=== PATIENT | male | born 1935 | race Caucasian/White ===

== ENCOUNTER 2018-08-09 17:09 | Inpatient (IN) | payer MEDICARE, BC ==
[~2018-08-09] VITALS: Ht 177.8 cm; Wt 78.0 kg
[~2018-08-09 17:09] MED LIST: AMLO5TAB4; ATOR40TA21
[2018-08-09 17:15] VITALS: Ht 177.8 cm; Wt 78.0 kg
--- NOTE | 2018-08-09 17:37 | ERD ---
ER Documentation Chief Complaint Chief Complaint fever with body aches/rick x 2 days--sent by pmd HPI The patient is a 83-year-old male, presenting to the ER because of headache and neck discomfort for the last 3 days, sore throat for the last 10 days. He was seen by his physician who sent him to the emergency department. He also c omplains of subjective fever for the last 3 days, denies nasal congestion, nasal discharge, cough, neck pain, chest pain, dyspnea, abdominal pain, dysuria, diarrhea. He does not smoke nor drink Past medical history: Hypertension, dyslipidemia, neuropathy, diabetes mellitus, history of prostate cancer Past surgical history: None ROS All systems reviewed and are negative except as per history of present illness. Medications Home Meds Reported Medications Atorvastatin (Lipitor) 40 Mg Tablet 05/08/10 Amlodipine Besylate* (Norvasc*) 5 Mg Tablet 05/08/10 Allergies Allergies: Coded Allergies: procaine (Verified Adverse Reaction, Severe, LEUKEMIA, 05/08/10) PMhx/Soc History of Surgery: Yes (SINUS SX.,TONSILLECTOMY) Anesthesia Reaction: Yes (HARD TO AROUSE) Hx Neurological Disorder: No Hx Respiratory Disorders: No Hx Cardiac Disorders: No Hx Psychiatric Problems: No Hx Miscellaneous Medical Probl: No Hx Alcohol Use: Yes (OCCASIONAL) Hx Substance Use: No Hx Tobacco Use: Yes (67 YEARS AGO) Physical Exam Vitals Vital Signs Date Temp Pulse Resp B/P (MAP) Pulse Ox O2 O2 Flow FiO2 Time Delivery Rate 08/09/18 98.2 71 16 129/64 95 Nasal 2.0 20:11 (85) Cannula 08/09/18 Nasal 2 18:10 Cannula 08/09/18 2.0 18:10 08/09/18 100.3 85 18 128/68 91 17:15 (88) Physical Exam Const: No acute distress. Head: Atraumatic. Eyes: Normal Conjunctiva. ENT: Normal External Ears, Nose and Mouth. Neck: Full range of motion. No meningismus. Resp: Clear to auscultation bilaterally. Cardio: Regular rate and rhythm. Abd: Soft, non distended, normal bowel sounds, non tender. Skin: No petechiae or rashes. Back: No midline or flank tenderness. Ext: No cyanosis, or edema. Neur: Awake and alert. No focal deficit Psych: Normal Mood and Affect. Result Diagram: 08/09/18 1802 08/09/18 180 Results 24 hrs Laboratory Tests Test 08/09/18 17:48 08/09/18 18:02 08/09/18 18:03 08/09/18 18:04 Blood Gas Blood arterial Specimen Source Arterial Blood 08/09/2018 6:04: Date Drawn 06 PM Arterial Blood 7.454 pH (Temp corrected ) Arterial Blood 33.9 mmhg pCO2 (Temp correct) Arterial Blood 61.6 mmHG pO2 (Temp corrected ) Arterial Blood 23.2 mmol/L HCO3 Arterial Blood -0.1 mmol/L Base Excess Arterial Blood 91.9 mmHG Oxygen Saturati on Eris Test ACCEPTAB Arterial Blood Right Radial Gas Puncture Site Arterial 0.7 % Blood Carboxyhe moglobin Arterial Blood 0.3 % Methemoglobin Blood Gas A-a 47.5 mmHg O2 Differential Oxyhemoglobin 91.0 % Percent Blood Gas 37.0 C Temperature Blood Gas ROOM AIR Modality FiO2 21.0 % Blood Gas MDA Notified Whom Blood Gas 08/09/2018 6:06: Notified Time 33 PM White Blood 10.3 10^3/ul Count Red Blood Count 4.03 10^6/ul Hemoglobin 12.7 g/dl Hematocrit 38.8 % Mean 96.3 fl Corpuscular Volume Mean 31.5 pg Corpuscular Hemoglobin Mean 32.7 g/dl Corpuscular Hemoglobin Conc ent Red Cell 13.4 % Distribution Width Platelet Count 235 10^3/UL Mean Platelet 10.7 fl Volume Immature 0.700 % Granulocytes % Neutrophils % 78.9 % Lymphocytes % 7.3 % Monocytes % 10.6 % Eosinophils % 2.0 % Basophils % 0.5 % Nucleated Red 0.0 /100WBC Blood Cells % Immature 0.070 10^3/ul Granulocytes # Neutrophils # 8.1 10^3/ul Lymphocytes # 0.8 10^3/ul Monocytes # 1.1 10^3/ul Eosinophils # 0.2 10^3/ul Basophils # 0.1 10^3/ul Nucleated Red 0.0 10^3/ul Blood Cells # Prothrombin 13.1 Sec Time Prothrombin 1.0 Time Ratio INR 0.98 International Normalized Rati o Activated 26.9 Sec Partial Thrombo plast Time Sodium Level 141 mmol/L Potassium Level 3.4 mmol/L Chloride Level 104 mmol/L Carbon Dioxide 29 mmol/L Level Anion Gap 8 Blood Urea 19 mg/dl Nitrogen Creatinine 0.94 mg/dl Est Glomerular mL/min Filtrat Rate mL/min Glucose Level 136 mg/dl Calcium Level 8.6 mg/dl Total Bilirubin 1.1 mg/dl Direct 0.00 mg/dl Bilirubin Indirect 1.1 mg/dl Bilirubin Aspartate Amino 23 IU/L Transf (AST/SGO T) Alanine 24 IU/L Aminotransferas e (ALT/SGPT) Alkaline 131 IU/L Phosphatase Troponin I 0.012 ng/ml Total Protein 8.4 g/dl Albumin 3.7 g/dl Globulin 4.70 g/dl Albumin/Globuli 0.78 n Ratio Urine Color REBA Urine Clarity SLIGHTLY CLOUDY Urine pH 5.0 Urine Specific 1.027 [place] Urine Ketones NEGATIVE mg/dL Urine Nitrite NEGATIVE mg/dL Urine Bilirubin NEGATIVE mg/dL Urine 2+ mg/dL Urobilinogen Urine Leukocyte NEGATIVE Celeste/ul Esterase Urine 17 /HPF Microscopic RBC Urine 5 /HPF Microscopic WBC Urine Mucus MANY /HPF Urine 1+ mg/dL Hemoglobin Urine Glucose NEGATIVE mg/dL Urine Total 2+ mg/dl Protein POC Venous 1.1 mmol/L Lactate Current Medications Medications Dose Sig/Farhat Start Time Status Last (Trade) Ordered Route PRN Stop Time Admin Dose Reason Admin Sodium 1,000 ml @ Q1H ONCE 08/09/18 DC 08/09/18 Chloride 1,000 mls/hr IV 20:00 19:58 08/09/18 20:59 Ondansetron 4 mg ONCE STAT 08/09/18 DC 08/09/18 HCl (Zofran IV 19:53 19:59 Inj) 08/09/18 19:54 Morphine 2 mg ONCE STAT 08/09/18 DC 08/09/18 Sulfate IV 19:53 19:59 (morphine) 08/09/18 19:54 Potassium 40 meq ONCE STAT 08/09/18 DC 08/09/18 Chloride PO 19:53 19:59 (Klor-Con 20) 08/09/18 19:54 Procedures/MDM [place] [id number] Radiology Main Line: [phone] DIAGNOSTIC IMAGING REPORT Patient: MIRTHA ALBERTO : 1935 Age: 83 Sex: M MR #: [id number] DOS: 08/09/182055 Ordering MD: MAYUR MICHAEL MD Location: E/R Room/Bed: PROCEDURE: CTA Chest. CLINICAL INDICATION: Shortness of breath. TECHNIQUE: Direct spiral axial sections were obtained from the thoracic inlet to the upper abdomen with the use of 100 cc of Isovue 370 nonionic intravenous contrast material. Coronal and sagittal reformations were obtained. 3D volume rendered (or MIP) imaging was performed. DICOM images are available. The images were reviewed on a PACS workstation. CTDIvol: 91.55, 16.61 mGy. DLP: 588.85 mGy-cm. One or more of the following dose reduction techniques were used: - Automated exposure control. - Adjustment of the mA and/or kV according to patient size. - Use of iterative reconstruction technique. COMPARISON: None. FINDINGS: There is no pulmonary embolism. The main pulmonary artery is normal in caliber. There is no aortic aneurysm or dissection. There are mild aortic calcific ations. The heart is not enlarged. There is no pericardial effusion. There are mild atelectatic changes in the lungs. There is no pulmonary edema or consolidation. A 6 mm nodule is identified in the left upper lobe. No pleural effusion or pneumothorax is identified. No suspicious thyroid lesion is seen. There is no thoracic lymphadenopathy. The trachea and mainstem bronchi are patent. Limited evaluation of the upper abdomen is unremarkable. There is no suspicious osseous lesion. IMPRESSION: No pulmonary embolism. No pulmonary edema or consolidation. 6 mm nodule in the left upper lobe. A repeat CT scan should be obtained 6-12 months to reassess this finding (Ann-Marie 2017). RPTAT: HTAR .Cam Cuellar MD, MD Date Time Electronically viewed and signed by .Cam Cuellar MD, MD on 08/09/2018 22:07 .R/ CC: MAYUR MICHAEL MD [phone] [place] [id number] Radiology Main Line: [phone] DIAGNOSTIC IMAGING REPORT Patient: MIRTHA ALBERTO : 1935 Age: 83 Sex: M MR #: [id number] DOS: 08/09/181747 Ordering MD: MAYUR MICHAEL MD Location: E/R Room/Bed: PROCEDURE: CT HEAD NON CONTRAST CLINICAL INDICATION: Headache, neck pain, sepsis TECHNIQUE: Utilizing the multi-slice spiral CT scanner, multiple images were obtained through the brain without intravenous contrast. Automatic exposure control was utilized as dose lowering technique.DICOM images available One of more of the following dose reduction techniques were utilized: -automatic exposure control.-adjustment of the mA and/or kV according to patient size. -Use of iterative reconstruction technique. Radiation Dose: CTDI is 38.91 mGy. DLP is 634.23 mGy-cm. COMPARISON: None FINDINGS: Ventricular system appears unremarkable. Periventricular low density area suggestive of deep white matter ischemic changes. Proportionate overlying brain atrophy noted. No acute intracranial bleed, midline shift, acute extra-axial collection noted. Brain stem, posterior fossa appears unremarkable. The globe, retrobulbar area appears unremarkable. Bony calvarium and overlying soft tissues appear unremarkable. Visualized portions of the paranasal sinuses are clear IMPRESSION: NO ACUTE INTRACRANIAL BLEED NOTED. IF FURTHER WORKUP IS DESIRED, FOLLOW-UP MRI MAY BE HELPFUL. RPTAT: AAOO Physician Chloé Date Time Electronically viewed and signed by Physician Chloé on 08/09/2018 18:40 MB/ CC: MAYUR MICHAEL MD [id number] [place] [id number] Radiology Main Line: [phone] DIAGNOSTIC IMAGING REPORT Patient: MIRTHA ALBERTO : 1935 Age: 83 Sex: M MR #: [id number] DOS: 08/09/181747 Ordering MD: MAYUR MICHAEL MD Location: E/R Room/Bed: PROCEDURE: CHEST X-RAY CLINICAL INDICATION: Sepsis TECHNIQUE: Portable semi upright one-view COMPARISON: None FINDINGS: Heart size and pulmonary vascularity appears unremarkable. Elevated right hemidiaphragm with thickening of the minor fissure noted. No acute infiltrates, edema, pneumothorax noted. IMPRESSION: Small fluid collection in the minor fissure. This is a poor inspiratory chest RPTAT: AAOO Physician Chloé Date Time Electronically viewed and signed by Physician Chloé on 08/09/2018 18:40 MB/ CC: MAYUR MICHAEL MD [phone] [place] [address] Radiology Main Line: [phone] DIAGNOSTIC IMAGING REPORT Patient: MIRTHA ALBERTO : 1935 Age: 83 Sex: M MR #: [id number] DOS: 08/09/18 1748 Ordering MD: MAUYR MICHAEL MD Location: E/R Room/Bed: PROCEDURE: CT sinuses without. CLINICAL INDICATION: Headache. TECHNIQUE: The study was performed utilizing a multi-slice, multidetector CT scanner utilizing Widdle protocol. Direct spiral 1 mm axial sections were obtained through the head without the use of intravenous contrast material. 1 or more of the following dose reduction techniques were utilized: Automated exposure control, adjustment of the mA and/or kV according to patient's size, iterative reconstruction technique. Coronal and sagittal reformations were obt ained. The images were reviewed on a PACS workstation. DICOM images are available. RADIATION DOSE: CTDIvol: 23.76 mGy mGy DLP: 399.64 mGy.cm mGy-cm COMPARISON: No prior studies are available for comparison. FINDINGS: There are postoperative left-side medial antrectomy or middle turbinectomy. The left maxillary sinus is normally aerated. The right maxillary sinus is normally aerated. The right ostiomeatal unit is patent. There is mild leftward nasal septal deviation. There is no significant hypertrophy of the inferior turbinates. The ethmoid air cells and frontal sinuses are normally aerated. The frontoethmoidal recesses are patent. The sphenoid sinuses are normally aerated. The sphenoethmoidal recesses are patent. Limited visualization of the intracranial contents is unremarkable. The orbits, facial bones and soft tissues are normal in appearance. IMPRESSION: 1. Postoperative change left-sided medial antrectomy with some total middle turbinectomy. The surgical antrum is patent. 2. Otherwise, normal CT of the paranasal sinuses. No significant inflammatory changes. 3. Anatomy as discussed above. RPTAT: HGAS .Fadi Banuelos MD, Date Time Electronically viewed and signed by .Fadi Banuelos MD, on 08/09/2018 18:51 .S/ CC: MAYUR MICHAEL MD [id number] MEDICAL MAKING DECISION: The patient is a 83-year-old male, presenting with acute cephalgia of unclear etiology, had acute hypoxemia of unclear etiology, acute hypokalemia, acute hematuria, left lung nodule. He was treated with 1 L normal saline for clinical dehydration, Zofran 4 mg IV for nausea and morphine 2 mg IV for pain, potassium chloride 40 mg p.o. for acute hypokalemia with good response. He seems better and is able to tolerate p.o. he responded well to supplemental oxygen 2 L nasal cannula The differential diagnoses for acute headache considered include but are not limited to subarachnoid hemorrhage, occult trauma, CVA, meningitis, encephali tis, hypertension, tension, migraine, cluster, narcotic withdrawal, cervical spine disease, viral/bacterial meningitis. The differential diagnoses for acute hypoxemia considered include but are not l imited to asthma, COPD, pneumonia, pulmonary embolus, pleural effusion, congestive heart failure. Departure Diagnosis: Primary Impression: Hypoxemia Additional Impressions: Cephalgia Hypokalemia Hematuria Lung nodule Anemia Condition: Stable Comments I discussed the findings with the patient. I discussed the patient with Dr Huggins at 8:55p , who was made aware of the lab, the treatment, the patient condition. The patient is admitted to [facility] Disclaimer: Inadvertent spelling and grammatical errors are likely due to EHR/dictation software use and do not reflect on the overall quality of patient care. Also, please note that the electronic time recorded on this note does not necessarily reflect the actual time of the patient encounter. MAYUR MICHAEL MD August 09, 2018 17:37
[2018-08-09] MEDS ORDERED: ONDANSETRON 4 MG INJ IV STA (19:53)
[2018-08-09] MEDS ORDERED: POTASSIUM CHLORIDE (SR) 20 MEQ TAB PO STA (19:53)
[2018-08-09] MEDS ORDERED: morphine 2 MG INJ IV STA (19:53)
[2018-08-09] MEDS ORDERED: SOD CHLORIDE 0.9% 1,000 ML IV ONE (20:00)
[2018-08-09] MEDS ORDERED: SOD CHLORIDE 0.9% 100 ML ONE (21:11)
[2018-08-09] MEDS ORDERED: IOHEXOL 100 ML ONE (21:11)
[2018-08-09 22:00] VITALS: BP 130/63; PULSE 79; RESP 18
[2018-08-09] MEDS ORDERED: ONDANSETRON 4 MG INJ IV PRN (22:30)
[2018-08-09] MEDS ORDERED: 1/2 NS + KCL 20 MEQ 1,000 ML IV SCH (22:30)
[2018-08-09] MEDS ORDERED: ACETAMINOPHEN 325 MG TAB PO PRN (22:30)
[2018-08-09] MEDS ORDERED: NACL 0.9% 3 ML SYG IV SCH (22:30)
[2018-08-09] MEDS ORDERED: POTASSIUM CHLORIDE 50 ML IVPB SCH (23:00)
[2018-08-09] MEDS: POTASSIUM CHLORIDE 50 ML IVPB SCH (23:03)
[2018-08-10] VITALS (12 sets, daily range): BP systolic 98–122; BP diastolic 55–59; PULSE 56–131; RESP 16–18
[2018-08-10] MEDS: CELECOXIB 200 MG CAP PO SCH ×3 (00:23→20:38)
[2018-08-10] MEDS ORDERED: PANTOPRAZOLE 40 MG INJ IV SCH (06:00)
[2018-08-10] MEDS: SOD CHLORIDE 0.9% 1,000 ML IV SCH (08:30)
--- NOTE | 2018-08-10 08:32 | HP ---
Date/Time of Note Date/Time of Note DATE: 08/10/18 TIME: 08:29 Assessment/Plan VTE Prophylaxis SCD applied (from Nsg): Yes Pharmacological prophylaxis: NA/contraindicated (until cause of sxs clarified) Pharm contraindication: other (until sxs clarified) Lines/Catheters IV Catheter Type (from Nrsg): Saline Lock Urinary Cath still in place: No Assessment/Plan Assessment/Plan H and P dictated Pt admitted with sore throat, diff swallowing, low grade temp with MRI of neck 1-2 d ago revealing "Longus Colli Tendonitis" rev with Dr. Cheney, Celebrex started and he will see today Speech rx requested, inflam markers ordered, diet advanced, Low k addressed. Result Diagram: 08/10/18 0558 08/09/18 1802 Results 24hrs Laboratory Tests Test 08/09/18 17:48 08/09/18 18:02 08/09/18 18:03 08/09/18 18:04 Blood Gas Blood arterial Specimen Source Arterial Blood 08/09/2018 6:04: Date Drawn 06 PM Arterial Blood 7.454 H pH (Temp corrected) Arterial Blood 33.9 L pCO2 (Temp correct) Arterial Blood 61.6 L pO2 (Temp corrected) Arterial Blood 23.2 HCO3 Arterial Blood -0.1 Base Excess Arterial Blood 91.9 L Oxygen Saturatio n Eris Test ACCEPTAB Arterial Blood Right Radial Gas Puncture Site Arterial 0.7 Blood Carboxyhem oglobin Arterial Blood 0.3 Methemoglobin Blood Gas A-a O2 47.5 H Differential Oxyhemoglobin 91.0 L Percent Blood Gas 37.0 Temperature Blood Gas ROOM AIR Modality FiO2 21.0 Blood Gas MDA Notified Whom Blood Gas 08/09/2018 6:06: Notified Time 33 PM White Blood 10.3 Count Red Blood Count 4.03 L Hemoglobin 12.7 L Hematocrit 38.8 L Mean Corpuscular 96.3 Volume Mean Corpuscular 31.5 Hemoglobin Mean Corpuscular 32.7 Hemoglobin Aide nt Red Cell 13.4 Distribution Width Platelet Count 235 Mean Platelet 10.7 H Volume Immature 0.700 H Granulocytes % Neutrophils % 78.9 H Lymphocytes % 7.3 L Monocytes % 10.6 Eosinophils % 2.0 Basophils % 0.5 Nucleated Red 0.0 Blood Cells % Immature 0.070 H Granulocytes # Neutrophils # 8.1 H Lymphocytes # 0.8 Monocytes # 1.1 H Eosinophils # 0.2 Basophils # 0.1 Nucleated Red 0.0 Blood Cells # Prothrombin Time 13.1 Prothrombin Time 1.0 Ratio INR 0.98 International Normalized Ratio Activated 26.9 Partial Thrombop last Time Sodium Level 141 Potassium Level 3.4 L Chloride Level 104 Carbon Dioxide 29 Level Anion Gap 8 Blood Urea 19 Nitrogen Creatinine 0.94 Est Glomerular Filtrat Rate mL/min Glucose Level 136 Calcium Level 8.6 Total Bilirubin 1.1 Direct Bilirubin 0.00 Indirect 1.1 Bilirubin Aspartate Amino 23 Transf (AST/SGOT ) Alanine 24 Aminotransferase (ALT/SGPT) Alkaline 131 H Phosphatase Troponin I 0.012 Total Protein 8.4 H Albumin 3.7 Globulin 4.70 H Albumin/Globulin 0.78 Ratio Urine Color REBA Urine Clarity SLIGHTLY CLOUDY A Urine pH 5.0 Urine Specific 1.027 [place] Urine Ketones NEGATIVE Urine Nitrite NEGATIVE Urine Bilirubin NEGATIVE Urine 2+ H Urobilinogen Urine Leukocyte NEGATIVE Esterase Urine 17 H Microscopic RBC Urine 5 Microscopic WBC Urine Mucus MANY A Urine Hemoglobin 1+ H Urine Glucose NEGATIVE Urine Total 2+ H Protein POC Venous 1.1 Lactate Test 08/09/18 21:34 08/10/18 00:14 08/10/18 05:58 Lactic Acid 1.3 1.0 Level White Blood 10.2 Count Red Blood Count 3.59 L Hemoglobin 11.3 L Hematocrit 35.0 L Mean Corpuscular 97.5 Volume Mean Corpuscular 31.5 Hemoglobin Mean Corpuscular 32.3 Hemoglobin Aide nt Red Cell 13.5 Distribution Width Platelet Count 208 Mean Platelet 11.0 H Volume Immature 0.800 H Granulocytes % Neutrophils % 80.4 H Lymphocytes % 6.7 L Monocytes % 9.7 Eosinophils % 2.0 Basophils % 0.4 Nucleated Red 0.0 Blood Cells % Immature 0.080 H Granulocytes # Neutrophils # 8.2 H Lymphocytes # 0.7 L Monocytes # 1.0 H Eosinophils # 0.2 Basophils # 0.0 Nucleated Red 0.0 Blood Cells # Phosphorus Level 3.1 Magnesium Level 1.8 HPI/ROS Admit Date/Time Admit Date/Time August 09, 2018 at 20:57 PMH/Family/Social Past Medical History Medications Current Medications Amlodipine Besylate (Norvasc) 5 mg DAILY PO ; Start 08/10/18 at 09:00 Atorvastatin Calcium (Lipitor) 40 mg DAILY PO ; Start 08/10/18 at 09:00 IV Flush (NS 3 ml) 3 ml PER PROTOCOL IV ; Start 08/09/18 at 22:30 Ondansetron HCl (Zofran Inj) 4 mg Q6H PRN IV NAUSEA/VOMITING; Start 08/09/18 at 22:30 Acetaminophen (Tylenol Tab) 650 mg Q6H PRN PO .PAIN 1-3 OR TEMP; Start 08/09/18 at 22:30 Celecoxib (Celebrex) 200 mg BID PO Last administered on 08/10/18at 00:23; Admin Dose 200 MG; Start 08/09/18 at 22:30 Potassium Chloride 50 ml @ 50 mls/hr ONCE IVPB Last administered on 08/09/18at 23:03; Admin Dose 50 MLS/HR; Start 08/09/18 at 23:00; Stop 08/11/18 at 23:59 Famotidine (Pepcid) 20 mg HS PO ; Start 08/10/18 at 21:00; Status UNV Pantoprazole (Protonix Tab) 40 mg DAILY@06 PO ; Start 08/10/18 at 09:00; Status UNV Sodium Chloride 1,000 ml @ 50 mls/hr Q20H IV ; Start 08/10/18 at 08:30; Status UNV Coded Allergies: procaine (Verified Adverse Reaction, Severe, LEUKEMIA, 05/08/10) Social History Smoking Status: Former smoker Exam/Review of Systems Vital Signs Vitals Vital Signs Date Temp Pulse Resp B/P (MAP) Pulse Ox O2 O2 Flow FiO2 Time Delivery Rate 08/10/18 97.6 61 18 103/59 98 Nasal 07:06 (74) Cannula 08/09/18 2.0 20:11 KARL RODRIGUES MD August 10, 2018 08:32
[2018-08-10] MEDS: AMLODIPINE 5 MG TAB PO SCH (09:00)
[2018-08-10] MEDS ORDERED: FAMOTIDINE 20 MG INJ IV SCH (09:00)
[2018-08-10] MEDS: ATORVASTATIN 40 MG TAB PO SCH (09:21)
[2018-08-10] MEDS: PANTOPRAZOLE (EC) 40 MG TAB PO SCH (09:25)
--- NOTE | 2018-08-10 09:47 | HP ---
DATE OF ADMISSION: 08/09/2018 IDENTIFYING DATA: The patient is an 83-year-old male, who admitted to the hospital with headache, so re throat and low-grade fever. HISTORICAL EVENTS: It was 2 to 3 days ago, the patient noted the onset difficulty swallowing and sen sed a "sore throat" Soon following the latter, he noted some aching and stiffness involving his neck as well as soreness involving the posterior scalp, and parietal scalp. He noted some difficulty jess ding and twisting his neck from [id number]. He feels pressure and tightness in the occiput and it seems also to spread to the temporal areas bilaterally. He had modest difficulty swallowing solids a nd less so liquids. He admitted to reduced appetite, but no nausea and vomiting. He denied cough, w heezing, shortness of breath and chest pain. Importantly he was evaluated by Dr. Cheney 3 to 4 week s ago and was empirically treated for a sinus condition with Cipro and Medrol Dosepak. More importan tly, he underwent an MRI scan of his neck and this revealed findings thought compatible with longus c olli tendinitis. This was revealed to me by Dr. Cheney last night. PAST MEDICAL HISTORY: Diabetes (?) as this patient is new to me as of several months ago, hypertensi on, bilateral hearing deficit, hyperlipidemia, neuropathy, history of prostate cancer, undergoing reg ular evaluation by Dr. Juan Barker. History of sinusitis and a prior smoker. SOCIAL HISTORY: The patient came here from [facility] in 1959 served in the [employer], , no chi ldren. Worked for [employer] and presently not working. MEDICATIONS: 1. Atorvastatin 40 mg per day. 2. Claritin 10 per day. 3. Amlodipine 10 mg per day. 4. Lyrica 200 mg b.i.d. ALLERGIES: NONE. PHYSICAL EXAMINATION: GENERAL: Toyei male, in no acute distress. VITAL SIGNS: Blood pressure 123/70, pulse 72, respirations were 18. He was afebrile. EYES: Extraocular muscles were full. NOSE, MOUTH, AND THROAT: Normal. NECK: Revealed some tenderness involving the posterior cervical area and reduced range of motion. T Ms were normal bilaterally. LUNGS: Clear. HEART: Rhythm regular, no murmur. ABDOMEN: Nontender. Liver and spleen not enlarged. EXTREMITIES: No edema. Calves are nontender. NEUROLOGIC: No lateralizing motor weakness. IMPRESSION AND PLAN: 1. Presenting symptoms of low grade fever, difficulty swallowing and sore throat with imaging eviden ce of longus colli tendinitis. We will begin empiric Celebrex 200 mg b.i.d. with GI protection. ENT to follow up as well as ID. Inflammatory markers and procalcitonin were ordered. 2. History of hypertension, blood pressure medications will be continued. 3. History of diabetes. Sugars will be observed. A1c ordered. For the moment, he will remain on c lear liquids. Speech therapy to evaluate as well. Dictated By: KARL RODRIGUES MD MR/NTS Conf#: [id number] DID#: [id number] CC: KARL RODRIGUES MD;*EndCC*
--- NOTE | 2018-08-10 16:17 | RADRPT ---
Vent Rate: 65 bpm RR Interval: 928 msec [place] Interval: 225 msec QRS Duration: 98 msec QT Interval: 437 msec QTC Interval: 454 msec P-R-T [place]: 60 - 38 - 50 degrees Sinus rhythm...normal P axis, V-rate 50- 99 Prolonged AZ interval...AZ >220, V-rate 50- 90 Electronically Signed By: Silvestre Garcia
[2018-08-10] MEDS: FAMOTIDINE 20 MG TAB PO SCH (20:38)
[2018-08-11] VITALS (11 sets, daily range): BP systolic 108–141; BP diastolic 60–67; PULSE 60–82; RESP 19–20
[2018-08-11] MEDS: POTASSIUM CHLORIDE 50 ML IVPB SCH ×3 (00:17→23:00)
[2018-08-11] MEDS: SOD CHLORIDE 0.9% 1,000 ML IV SCH (04:30)
[2018-08-11] MEDS: PANTOPRAZOLE (EC) 40 MG TAB PO SCH (06:24)
[2018-08-11] MEDS: ATORVASTATIN 40 MG TAB PO SCH (08:13)
[2018-08-11] MEDS: AMLODIPINE 5 MG TAB PO SCH (08:14)
[2018-08-11] MEDS: CELECOXIB 200 MG CAP PO SCH ×2 (08:15→20:44)
--- NOTE | 2018-08-11 08:18 | PN ---
Date/Time of Note Date/Time of Note DATE: 08/11/18 TIME: 08:13 Assessment/Plan VTE Prophylaxis Risk score (from Ns)>0 risk: 3 SCD applied (from Ns): Yes Pharmacological prophylaxis: NA/contraindicated (await mra) Pharm contraindication: low risk/ambulating Lines/Catheters IV Catheter Type (from Nrs): Saline Lock Urinary Cath still in place: No Assessment/Plan Assessment/Plan 1. BLANCA persist, ? cause await ID (?LP) and neuro eval, MRA brain ordered, CRP and Sed rate inc, ?? Temporal arteritis 2. Hypoxemia was not present yesterday with oxygen Sat>90 3. DM, AIC sl inc, will add Tradjenta 4. Mild anemia noted, will pursue Result Diagram: 08/11/18 0606 08/10/18 0849 Results 24hrs Laboratory Tests Test 08/10/18 08:49 08/11/18 06:06 Erythrocyte Sedimentation Rate 58 H Sodium Level 141 Potassium Level 3.8 Chloride Level 108 Carbon Dioxide Level 28 Anion Gap 5 Blood Urea Nitrogen 15 Creatinine 0.76 Est Glomerular Filtrat Rate mL/min Glucose Level 122 Calcium Level 7.6 L C-Reactive Protein 6.4 H Procalcitonin 0.09 White Blood Count 7.0 # Red Blood Count 3.57 L Hemoglobin 11.2 L Hematocrit 34.9 L Mean Corpuscular Volume 97.8 Mean Corpuscular Hemoglobin 31.4 Mean Corpuscular Hemoglobin Concent 32.1 Red Cell Distribution Width 13.3 Platelet Count 208 Mean Platelet Volume 11.2 H Immature Granulocytes % 0.700 H Neutrophils % 77.1 H Lymphocytes % 7.0 L Monocytes % 8.6 Eosinophils % 5.9 Basophils % 0.7 Nucleated Red Blood Cells % 0.0 Immature Granulocytes # 0.050 H Neutrophils # 5.4 Lymphocytes # 0.5 L Monocytes # 0.6 Eosinophils # 0.4 Basophils # 0.1 Nucleated Red Blood Cells # 0.0 Hemoglobin A1c 7.1 H Subjective 24 Hr Interval Summary Constitutional: other (fatigue) Cardiovascular: No chest pain, No edema, No lightheadedness Gastrointestinal: no complaints Genitourinary: no complaints Musculoskeletal: no complaints Neurologic: other (blanca persists, ?? pulsatile parietal and occipital) Exam/Review of Systems Exam Vitals Vital Signs Date Temp Pulse Resp B/P (MAP) Pulse Ox O2 O2 Flow FiO2 Time Delivery Rate 08/11/18 97.4 67 20 122/63 95 Nasal 07:46 (82) Cannula 08/11/18 3.0 05:43 Intake and Output 08/10/18 08/10/18 08/11/18 1515:00 23:00 07:00 IntakeIntake Total 450 ml BalanceBalance 450 ml Neck: No jvd Respiratory: clear to auscultation Cardiovascular: regular rate and rhythm Gastrointestinal: soft Neurological: No focal weakness Results Results 24hrs Laboratory Tests Test 08/10/18 08:49 08/11/18 06:06 Erythrocyte Sedimentation Rate 58 H Sodium Level 141 Potassium Level 3.8 Chloride Level 108 Carbon Dioxide Level 28 Anion Gap 5 Blood Urea Nitrogen 15 Creatinine 0.76 Est Glomerular Filtrat Rate mL/min Glucose Level 122 Calcium Level 7.6 L C-Reactive Protein 6.4 H Procalcitonin 0.09 White Blood Count 7.0 # Red Blood Count 3.57 L Hemoglobin 11.2 L Hematocrit 34.9 L Mean Corpuscular Volume 97.8 Mean Corpuscular Hemoglobin 31.4 Mean Corpuscular Hemoglobin Concent 32.1 Red Cell Distribution Width 13.3 Platelet Count 208 Mean Platelet Volume 11.2 H Immature Granulocytes % 0.700 H Neutrophils % 77.1 H Lymphocytes % 7.0 L Monocytes % 8.6 Eosinophils % 5.9 Basophils % 0.7 Nucleated Red Blood Cells % 0.0 Immature Granulocytes # 0.050 H Neutrophils # 5.4 Lymphocytes # 0.5 L Monocytes # 0.6 Eosinophils # 0.4 Basophils # 0.1 Nucleated Red Blood Cells # 0.0 Hemoglobin A1c 7.1 H Medications Medication Current Medications Amlodipine Besylate (Norvasc) 5 mg DAILY PO ; Start 08/10/18 at 09:00 Atorvastatin Calcium (Lipitor) 40 mg DAILY PO Last administered on 08/10/18at 09:21; Admin Dose 40 MG; Start 08/10/18 at 09:00 IV Flush (NS 3 ml) 3 ml PER PROTOCOL IV ; Start 08/09/18 at 22:30 Ondansetron HCl (Zofran Inj) 4 mg Q6H PRN IV NAUSEA/VOMITING; Start 08/09/18 at 22:30 Acetaminophen (Tylenol Tab) 650 mg Q6H PRN PO .PAIN 1-3 OR TEMP Last administered on 08/10/18at 14:57; Admin Dose 650 MG; Start 08/09/18 at 22:30 Celecoxib (Celebrex) 200 mg BID PO Last administered on 08/10/18 20:38; Admin Dose 200 MG; Start 08/09/18 at 22:30 Potassium Chloride 50 ml @ 50 mls/hr ONCE IVPB Last administered on 08/11/18at 00:17; Admin Dose 50 MLS/HR; Start 08/09/18 at 23:00; Stop 08/11/18 at 23:59 Famotidine (Pepcid) 20 mg HS PO Last administered on 08/10/18 20:38; Admin Dose 20 MG; Start 08/10/18 at 21:00 Pantoprazole (Protonix Tab) 40 mg DAILY@06 PO Last administered on 08/11/18at 06:24; Admin Dose 40 MG; Start 08/10/18 at 09:00 Sodium Chloride 1,000 ml @ 50 mls/hr Q20H IV Last administered on 08/11/18at 04:30; Admin Dose 50 MLS/HR; Start 08/10/18 at 08:30 KARL RODRIGUES MD August 11, 2018 08:18
[2018-08-11] MEDS ORDERED: GLUCAGON 1 MG INJ IM PRN (08:30)
[2018-08-11] MEDS ORDERED: GLUCOSE GEL 15 GRAM TUBE BUCCAL PRN (08:30)
[2018-08-11] MEDS ORDERED: GLUCOSE GEL 15 GRAM TUBE PO PRN ×2 (08:30)
[2018-08-11] MEDS ORDERED: DEXTROSE 50% 50 ML SYRINGE IV PRN ×2 (08:30)
--- NOTE | 2018-08-11 08:37 | CONS ---
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 no retropharyngeal abscess was appreciated and his procalcitonin is neg and his WBC is ok low grade fevers and pain with swallowing are hallmarks of longis new tendinitis antibiotics do not apply in this situation and no strong evidence exists for a current active infection continue with NSAID's and off antibiotics thank you for this interesting consult 2) DM 3) HTN 4) hx of prostate CA u/a shows some mild hematuria urine cx has <10k mixed GPC and is not significant plus the pt is asymptomatic no antibiotics needed for this Consultation Date/Type/Reason Admit Date/Time August 09, 2018 at 20:57 Date of Consultation: August 11, 2018 Type of Consult ID Date/Time of Note DATE: 08/11/18 TIME: 08:27 Hx of Present Illness pt gives a rambling hx but what I can piece together is that 3 years ago he started having difficulty swallowing he had pain with swallowing but did not have food getting stuck, this has pro gressively gotten worse He also states he gets nasal crusting alot and picks at his nose He noticed low grade fevers off an on for the last few months He also was having some BLANCA and pain with turning of his neck. No N, V, D his last BM was 7-10 days ago he believes no SOB, cough. no skin rashes, joint pains 3 weeks ago he got an IM shot and some unknown antibiotics that caused diarrhea and was told to stop them He noticed that 2 days after the shot his symptoms were gone His admission two days ago was due to some BLANCA and neck pain Past Medical History HTN, DM, prostate CA, XRT for prostate, hyperlipidemia, decreased hearing Home Meds Reported Medications Atorvastatin (Lipitor) 40 Mg Tablet 05/08/10 Amlodipine Besylate* (Norvasc*) 5 Mg Tablet 05/08/10 Medications Current Medications Amlodipine Besylate (Norvasc) 5 mg DAILY PO Last administered on 08/11/18at 08:14; Admin Dose 5 MG; Start 08/10/18 at 09:00 Atorvastatin Calcium (Lipitor) 40 mg DAILY PO Last administered on 08/11/18at 08:13; Admin Dose 40 MG; Start 08/10/18 at 09:00 IV Flush (NS 3 ml) 3 ml PER PROTOCOL IV ; Start 08/09/18 at 22:30 Ondansetron HCl (Zofran Inj) 4 mg Q6H PRN IV NAUSEA/VOMITING; Start 08/09/18 at 22:30 Acetaminophen (Tylenol Tab) 650 mg Q6H PRN PO .PAIN 1-3 OR TEMP Last administered on 08/10/18at 14:57; Admin Dose 650 MG; Start 08/09/18 at 22:30 Celecoxib (Celebrex) 200 mg BID PO Last administered on 08/11/18at 08:15; Admin Dose 200 MG; Start 08/09/18 at 22:30 Potassium Chloride 50 ml @ 50 mls/hr ONCE IVPB Last administered on 08/11/18at 00:17; Admin Dose 50 MLS/HR; Start 08/09/18 at 23:00; Stop 08/11/18 at 23:59 Famotidine (Pepcid) 20 mg HS PO Last administered on 08/10/18at 20:38; Admin D ose 20 MG; Start 08/10/18 at 21:00 Pantoprazole (Protonix Tab) 40 mg DAILY@06 PO Last administered on 08/11/18at 06:24; Admin Dose 40 MG; Start 08/10/18 at 09:00 Linagliptin (Tradjenta) 5 mg DAILY PO ; Start 08/11/18 at 09:00 Miscellaneous Information 1 ea NOTE XX ; Start 08/11/18 at 08:30 Glucose (Glutose) 15 gm Q15M PRN PO DECREASED GLUCOSE; Start 08/11/18 at 08:30 Glucose (Glutose) 22.5 gm Q15M PRN PO DECREASED GLUCOSE; Start 08/11/18 at 08:30 Dextrose (D50w Syringe) 25 ml Q15M PRN IV DECREASED GLUCOSE; Start 08/11/18 at 08:30 Dextrose (D50w Syringe) 50 ml Q15M PRN IV DECREASED GLUCOSE; Start 08/11/18 at 08:30 Glucagon (Glucagen) 1 mg Q15M PRN IM DECREASED GLUCOSE; Start 08/11/18 at 08:30 Glucose (Glutose) 15 gm Q15M PRN BUCCAL DECREASED GLUCOSE; Start 08/11/18 at 08:30 Allergies: Coded Allergies: procaine (Verified Adverse Reaction, Severe, LEUKEMIA, 05/08/10) Social History Smoking Status: Former smoker Exam/Review of Systems Exam Vitals Vital Signs Date Temp Pulse Resp B/P (MAP) Pulse Ox O2 O2 Flow FiO2 Time Delivery Rate 08/11/18 97.4 67 20 122/63 95 Nasal 07:46 (82) Cannula 08/11/18 3.0 05:43 Intake and Output 08/10/18 08/10/18 08/11/18 1515:00 23:00 07:00 IntakeIntake Total 450 ml BalanceBalance 450 ml Constitutional: alert, oriented Eyes: nl sclera ENMT: mucosa pink and moist Neck: supple Respiratory: clear to auscultation Cardiovascular: regular rate and rhythm Gastrointestinal: soft, non-tender Extremities: other (no edema) Neurological: other (non focal) Results Result Diagram: 08/11/18 0606 08/10/18 0849 Results 24hrs Laboratory Tests Test 08/10/18 08:49 08/11/18 06:06 Erythrocyte Sedimentation Rate 58 H Sodium Level 141 Potassium Level 3.8 Chloride Level 108 Carbon Dioxide Level 28 Anion Gap 5 Blood Urea Nitrogen 15 Creatinine 0.76 Est Glomerular Filtrat Rate mL/min Glucose Level 122 Calcium Level 7.6 L C-Reactive Protein 6.4 H Procalcitonin 0.09 White Blood Count 7.0 # Red Blood Count 3.57 L Hemoglobin 11.2 L Hematocrit 34.9 L Mean Corpuscular Volume 97.8 Mean Corpuscular Hemoglobin 31.4 Mean Corpuscular Hemoglobin Concent 32.1 Red Cell Distribution Width 13.3 Platelet Count 208 Mean Platelet Volume 11.2 H Immature Granulocytes % 0.700 H Neutrophils % 77.1 H Lymphocytes % 7.0 L Monocytes % 8.6 Eosinophils % 5.9 Basophils % 0.7 Nucleated Red Blood Cells % 0.0 Immature Granulocytes # 0.050 H Neutrophils # 5.4 Lymphocytes # 0.5 L Monocytes # 0.6 Eosinophils # 0.4 Basophils # 0.1 Nucleated Red Blood Cells # 0.0 Hemoglobin A1c 7.1 H Medications Medication Current Medications Amlodipine Besylate (Norvasc) 5 mg DAILY PO Last administered on 08/11/18at 08:14; Admin Dose 5 MG; Start 08/10/18 at 09:00 Atorvastatin Calcium (Lipitor) 40 mg DAILY PO Last administered on 08/11/18at 08:13; Admin Dose 40 MG; Start 08/10/18 at 09:00 IV Flush (NS 3 ml) 3 ml PER PROTOCOL IV ; Start 08/09/18 at 22:30 Ondansetron HCl (Zofran Inj) 4 mg Q6H PRN IV NAUSEA/VOMITING; Start 08/09/18 at 22:30 Acetaminophen (Tylenol Tab) 650 mg Q6H PRN PO .PAIN 1-3 OR TEMP Last administered on 08/10/18at 14:57; Admin Dose 650 MG; Start 08/09/18 at 22:30 Celecoxib (Celebrex) 200 mg BID PO Last administered on 08/11/18at 08:15; Admin Dose 200 MG; Start 08/09/18 at 22:30 Potassium Chloride 50 ml @ 50 mls/hr ONCE IVPB Last administered on 08/11/18at 00:17; Admin Dose 50 MLS/HR; Start 08/09/18 at 23:00; Stop 08/11/18 at 23:59 Famotidine (Pepcid) 20 mg HS PO Last administered on 08/10/18at 20:38; Admin Dose 20 MG; Start 08/10/18 at 21:00 Pantoprazole (Protonix Tab) 40 mg DAILY@06 PO Last administered on 08/11/18at 06:24; Admin Dose 40 MG; Start 08/10/18 at 09:00 Linagliptin (Tradjenta) 5 mg DAILY PO ; Start 08/11/18 at 09:00 Miscellaneous Information 1 ea NOTE XX ; Start 08/11/18 at 08:30 Glucose (Glutose) 15 gm Q15M PRN PO DECREASED GLUCOSE; Start 08/11/18 at 08:30 Glucose (Glutose) 22.5 gm Q15M PRN PO DECREASED GLUCOSE; Start 08/11/18 at 08:30 Dextrose (D50w Syringe) 25 ml Q15M PRN IV DECREASED GLUCOSE; Start 08/11/18 at 08:30 Dextrose (D50w Syringe) 50 ml Q15M PRN IV DECREASED GLUCOSE; Start 08/11/18 at 08:30 Glucagon (Glucagen) 1 mg Q15M PRN IM DECREASED GLUCOSE; Start 08/11/18 at 08:30 Glucose (Glutose) 15 gm Q15M PRN BUCCAL DECREASED GLUCOSE; Start 08/11/18 at 08:30 JOE WEI MD August 11, 2018 08:37
[2018-08-11] MEDS: LINAGLIPTIN 5 MG TABLET PO SCH (09:38)
--- NOTE | 2018-08-11 10:33 | RADRPT ---
Echocardiogram Report Patient Name: MIRTHA ALBERTOPatient ID: [id number] : 1935 (83y 3m)Study Date: 08/10/2018 11:55:45 AM Gender: MAccession #: [id number] Tech: Scout Rodriguez [facility] Location: [id number] Ref.Physician: KARL RODRIGUES Height(Cm): BSA: Weight(Kg): Quality: AdequateOrder Physician: KARL RODRIGUES Account #: Procedures: Echocardiographic Report: Transthoracic echocardiogram with complete 2D, M-Mode, and doppler examination. Indications: heart m and dysohagia. Measurements: 2D/M Mode Doppler Measurement Value Normal Range Measurement Value Normal Range LVIDd 2D 4.6 [ 4.2 - 5.8 ] cm AV Peak Bernabe 1.7 [ 100.0 - 170.0 ] cm/sec LVIDs 2D 2.7 [ 2.5 - 4.0 ] cm AV Peak PG 12.0 [ 2.0 - 9.0 ] mmHg LVPWd 2D 1.6 [ 0.6 - 1.0 ] cm LVOT Peak Bernabe 1.0 [ 70.0 - 110.0 ] cm/sec IVSd 2D 1.5 [ 0.6 - 1.0 ] cm LVOT Peak PG 4.0 [ 2.0 - 6.0 ] mmHg IVS/LVPW 2D 0.9 ratio MV E Peak Bernabe 0.8 [ 60.0 - 130.0 ] cm/sec AoR Diam 2D 2.9 [ 2.6 - 3.4 ] cm MV A Peak Bernabe 1.1 [ 100.0 - 120.0 ] cm/sec LA/Ao 2D 1 ratio MV E/A 0.7 [ 0.8 - 1.5 ] ratio LA Dimen 2D 3.9 [ 3.0 - 4.0 ] cm MV Decel Time 201 [ 104 - 258 ] msec Lat E` Bernabe 0.1 [ 10.0 - 15.0 ] cm/sec MV E/A 0.7 [ 0.8 - 1.5 ] ratio TR Peak Bernabe 2.4 [ 100.0 - 280.0 ] cm/sec TR Peak PG 23.0 mmHg RVSP 26.0 [ 10.0 - 36.0 ] mmHg RA Pressure 3.0 mmHg Findings: Left Ventricle: Normal left ventricular systolic function. Normal left ventricular cavity size. Moderate concentric left ventricular hypertrophy. Ejection fraction is visually estimated at 65 %. Tissue Doppler/Mitral Doppler indices are consistent with impaired relaxation (Stage I diastolic dysfunction). Right Ventricle: Normal right ventricular size. Normal right ventricular systolic function. Left Atrium: The left atrium is normal in size. Right Atrium: The right atrium is normal in size. Mitral Valve: Normal appearance of the mitral valve. Mild mitral annular calcification. Aortic Valve: No hemodynamically significant aortic stenosis by doppler. Aortic cusps appear mildly calcified. Trileaflet aortic valve. Mild aortic valve regurgitation. Tricuspid Valve: Normal appearance of the tricuspid valve. Normal right ventricular systolic pressure. Estimated peak PA systolic pressure 26 mmHg. There is trace tricuspid regurgitation. Pulmonic Valve: Normal pulmonic valve appearance. Pericardium: Normal pericardium with no significant pericardial effusion. Aorta: Normal aortic root. IVC: Normal size and normal respiratory collapse consistent with normal right atrial pressure. Conclusions: Normal left ventricular systolic function. Normal left ventricular cavity size. Moderate concentric left ventricular hypertrophy. Ejection fraction is visually estimated at 65 %. Tissue Doppler/Mitral Doppler indices are consistent with impaired relaxation (Stage I diastolic dysfunction). Normal right ventricular size. Normal right ventricular systolic function. Normal appearance of the mitral valve. Mild mitral annular calcification. No hemodynamically significant aortic stenosis by doppler. Aortic cusps appear mildly calcified. Trileaflet aortic valve. Mild aortic valve regurgitation. Normal appearance of the tricuspid valve. Normal right ventricular systolic pressure. Estimated peak PA systolic pressure 26 mmHg. There is trace tricuspid regurgitation. Normal pericardium with no significant pericardial effusion. Normal size and normal respiratory collapse consistent with normal right atrial pressure. No Vegetation, masses, or thrombi seen. Electronically Signed By: Corby Gifford 2018-08-11 10:32:32 PDT
--- NOTE | 2018-08-11 10:39 | HP ---
DATE OF ADMISSION: 08/09/2018 REFERRING PHYSICIAN: Karl Rodrigues MD REASON FOR CONSULTATION: Throat pain. HISTORY OF PRESENT ILLNESS: The patient is an 83-year-old male with a history of sore throats and l ow grade fevers. Patient has had an intermittent history of sore throat over the last several weeks. He was seen by me in the office about 2 months ago and received a shot of intramuscular Rocephin in addition to Kenalog, with significant resolution of his symptoms. Over the last several days, he rick s noted progressively worsening dysphagia and sore throat. He underwent an MRI of the neck last week , demonstrating the presence of longus colli tendinitis. No other abnormalities were identified. He was seen by Dr. Rodrigues yesterday with aching and stiffness of his neck as well as soreness of the po sterior scalp, and parietal scalp. He also had noted pressure and tightness in the occiput into the temporal areas. He had some moderate dysphagia to solids. He was admitted to the hospital for evalu ation of these symptoms. PAST MEDICAL HISTORY: 1. Questionable diabetes. 2. Hypertension. 3. Bilateral hearing loss. 4. Hyperlipidemia. 5. Previous history of prostate cancer. 6. Previous history of sinusitis and smoking. SOCIAL HISTORY: The patient lived in [facility]. He is without children. He is currently retir ed. MEDICATIONS ON ADMISSION: Included: 1. Atorvastatin. 2. Claritin. 3. Amlodipine. 4. Lyrica. ALLERGIES: NONE. Examination well-developed, well-nourished male in no acute distress. VITAL SIGNS: Blood pressure is 120/80, pulse is 80, respirations are 18. The patient is afebrile. GENERAL: No acute distress. HEAD: Atraumatic, normocephalic. No masses or lesions noted. Ear, nose and throat, the nasal endos copy is clear. Oropharynx and oral cavity is clear. NECK: Supple, full range of motion. Tympanic membranes clear bilaterally. There is no cervical lym phadenopathy. The cervical lymph nodes are unremarkable. ENDOCRINE: Thyroid appears nontender, without any evidence of masses. NEUROLOGIC: Cranial nerves II-XII are grossly intact. ASSESSMENT: The patient presents with a history of low-grade fevers with dysphagia and sore throats with radiographic evidence of longus colli tendinitis. After discussion with Dr. Rodrigues it was elect ed to proceed with this initiation of Celebrex and GI protection. Recommendation was to perform a be dside laryngoscopy to reevaluate the hypopharynx. Will consider infectious disease consultation with possible rheumatology and neurology consultations as well. In regards to the other medical problems including hypertension and diabetes. It is recommended that sugars be controlled and blood pressure control be maintained. I will perform a bedside laryngoscopy to identify any abnormal masses or les ions. Dictated By: DARRYL DUARTE MD AN/NTS Conf#: [id number] DID#: [id number] CC: KARL RODRIGUES MD;*EndCC*
--- NOTE | 2018-08-11 16:46 | CONS ---
Assessment/Plan Assessment/Plan Hospital Course 83 yo M with multiple comorbidities who presents for evaluation of headache, neck stiffness, and other sx... for which neurology is consulted. The pt is currently unable to characterize the details of his headache... The clinical picture is could be consistent with a secondary headache, in the context of systemic illness. Meningoencephalitis is unlikely. Temporal arteritis is unlikely. MRI brain is without acute intracranial pathology. P: Ok to defer additional neuroimaging for now Agree with celebrex (with protonix) for headache management Cont medical management per primary PT/OT/ST as necessary Will follow clinically, to recommend neurologic studies, as necessary Consultation Date/Type/Reason Admit Date/Time August 09, 2018 at 20:57 Type of Consult Neurology Reason for Consultation headache Requesting Provider: KARL RODRIGUES MD Date/Time of Note DATE: 08/11/18 TIME: 16:46 Hx of Present Illness 83 yo M with hx of HTN, prostate CA, and other comorbidities who presented to ED with complaints of headache, dysphagia, sore throat and neck stiffness. History was obtained from pt and chart review. The pt notes that he had a sinus infection ~ 1 month ago with headache, runny nose, and "pressure in his head." He states that he saw Dr Cheney who gave him a shot (IM Rocephin) and steroids after which he felt significantly better. He then states that about 2-3 days ago, he noticed a sore throat followed by a "stuffy nose" and a headache that "seemed to be all over" (while grabbing the back of his head). He was unable to characterize it but states that it was severe and limited his neck mobility. He then stated that he got some follow up neck imaging. He currently denies any headache, though states that it was relieved about 2 hours prior to this conversation. He denies any dizziness, weakness, lethargy, confusion, vision or speech changes, numbness or tingling, gait instability. He states that his swallowing is okay at this time. He also denies a hx of migraines. It is additionally elsewhere noted: HISTORICAL EVENTS: It was 2 to 3 days ago, the patient noted the onset difficulty swallowing and sensed a "sore throat" Soon following the latter, he noted some aching and stiffness involving his neck as well as soreness involving the posterior scalp, and parietal scalp. He noted some difficulty bending and twisting his neck from [id number]. He feels pressure and tightness in the occiput and it seems also to spread to the temporal areas bilaterally. He had modest difficulty swallowing solids and less so liquids. He admitted to reduced appetite, but no nausea and vomiting. He denied cough, wheezing, shortness of breath and chest pain. Importantly he was evaluated by Dr. Cheney 3 to 4 weeks ago and was empirically treated for a sinus condition with Cipro and Medrol Dosepak. More importantly, he underwent an MRI scan of his neck and this revealed findings thought compatible with longus colli tendinitis. This was revealed to me by Dr. Cheney last night. negative unless noted otherwise in HPI Exam/Review of Systems Exam Vitals Vital Signs Date Temp Pulse Resp B/P (MAP) Pulse Ox O2 O2 Flow FiO2 Time Delivery Rate 08/11/18 97.5 67 20 122/67 92 Room Air 15:06 (85) 08/11/18 3.0 05:43 Intake and Output 08/10/18 08/10/18 08/11/18 1414:59 22:59 06:59 IntakeIntake Total 450 ml BalanceBalance 450 ml Exam PE: Gen Appearance: No Apparent Distress HEENT: Normocephalic Cardiovascular: Regular rate Lungs: Clear bilaterally Abdomen: Soft Extremities: Dry NE: The patient was alert and oriented. Language was normal. Fund of knowledge was normal. Pupils were equal and reactive to light. There was no afferent pupillary defect. Visual reza were normal. Funduscopic examination was limited. Extra-ocular movements were full. Ptosis was absent. There was no nystagmus. Facial sensation was normal. Face was symmetric with normal strength. Hearing was intact. Palate movements were normal. Neck strength was normal. There was normal tongue bulk and speed of movement. Tone was normal. Muscle bulk was normal. I did not see fasciculations. Arms and legs were strong to confrontation. Vibration sensation was normal. Temperature and pinprick sensation was normal. Rapid alternating movements were normal. There was no dysmetria. There was no intention tremor. Gait was deferred due to bedrest. Arm and leg reflexes were 2+ and symmetric. Nair's sign was absent. Plantar responses were flexor. Results Result Diagram: 08/11/18 0606 08/10/18 0849 Results 24hrs Laboratory Tests Test 08/11/18 06:06 08/11/18 08:20 08/11/18 14:40 White Blood Count 7.0 # Red Blood Count 3.57 L Hemoglobin 11.2 L Hematocrit 34.9 L Mean Corpuscular Volume 97.8 Mean Corpuscular Hemoglobin 31.4 Mean Corpuscular Hemoglobin Concent 32.1 Red Cell Distribution Width 13.3 Platelet Count 208 Mean Platelet Volume 11.2 H Immature Granulocytes % 0.700 H Neutrophils % 77.1 H Lymphocytes % 7.0 L Monocytes % 8.6 Eosinophils % 5.9 Basophils % 0.7 Nucleated Red Blood Cells % 0.0 Immature Granulocytes # 0.050 H Neutrophils # 5.4 Lymphocytes # 0.5 L Monocytes # 0.6 Eosinophils # 0.4 Basophils # 0.1 Nucleated Red Blood Cells # 0.0 Hemoglobin A1c 7.1 H Urine Color YELLOW YELLOW Urine Clarity CLEAR CLEAR Urine pH 8.0 8.0 Urine Specific [place] 1.011 1.009 Urine Ketones TRACE A NEGATIVE Urine Nitrite NEGATIVE NEGATIVE Urine Bilirubin NEGATIVE NEGATIVE Urine Urobilinogen 1+ H 2+ H Urine Leukocyte Esterase NEGATIVE NEGATIVE Urine Microscopic RBC 8 H 7 H Urine Microscopic WBC 1 1 Urine Hemoglobin 1+ H 1+ H Urine Random Creatinine 45.26 Urine Protein/Creatinine Ratio 0.39 Urine Glucose NEGATIVE NEGATIVE Urine Total Protein NEGATIVE NEGATIVE Urine Bacteria FEW A Urine Mucus FEW A Medications Medication Current Medications Amlodipine Besylate (Norvasc) 5 mg DAILY PO Last administered on 08/11/18at 08:14; Admin Dose 5 MG; Start 08/10/18 at 09:00 Atorvastatin Calcium (Lipitor) 40 mg DAILY PO Last administered on 08/11/18at 08:13; Admin Dose 40 MG; Start 08/10/18 at 09:00 IV Flush (NS 3 ml) 3 ml PER PROTOCOL IV ; Start 08/09/18 at 22:30 Ondansetron HCl (Zofran Inj) 4 mg Q6H PRN IV NAUSEA/VOMITING; Start 08/09/18 at 22:30 Acetaminophen (Tylenol Tab) 650 mg Q6H PRN PO .PAIN 1-3 OR TEMP Last administered on 08/10/18at 14:57; Admin Dose 650 MG; Start 08/09/18 at 22:30 Celecoxib (Celebrex) 200 mg BID PO Last administered on 08/11/18at 08:15; Admin Dose 200 MG; Start 08/09/18 at 22:30 Potassium Chloride 50 ml @ 50 mls/hr ONCE IVPB Last administered on 08/11/18at 00:17; Admin Dose 50 MLS/HR; Start 08/09/18 at 23:00; Stop 08/11/18 at 23:59 Famotidine (Pepcid) 20 mg HS PO Last administered on 08/10/18at 20:38; Admin Dose 20 MG; Start 08/10/18 at 21:00 Pantoprazole (Protonix Tab) 40 mg DAILY@06 PO Last administered on 08/11/18at 06:24; Admin Dose 40 MG; Start 08/10/18 at 09:00 Linagliptin (Tradjenta) 5 mg DAILY PO Last administered on 08/11/18at 09:38; Admin Dose 5 MG; Start 08/11/18 at 09:00 Miscellaneous Information 1 ea NOTE XX ; Start 08/11/18 at 08:30 Glucose (Glutose) 15 gm Q15M PRN PO DECREASED GLUCOSE; Start 08/11/18 at 08:30 Glucose (Glutose) 22.5 gm Q15M PRN PO DECREASED GLUCOSE; Start 08/11/18 at 08:3 0 Dextrose (D50w Syringe) 25 ml Q15M PRN IV DECREASED GLUCOSE; Start 08/11/18 at 08:30 Dextrose (D50w Syringe) 50 ml Q15M PRN IV DECREASED GLUCOSE; Start 08/11/18 at 08:30 Glucagon (Glucagen) 1 mg Q15M PRN IM DECREASED GLUCOSE; Start 08/11/18 at 08:30 Glucose (Glutose) 15 gm Q15M PRN BUCCAL DECREASED GLUCOSE; Start 08/11/18 at 08:30 Past Medical History reviewed Home Meds Reported Medications Atorvastatin (Lipitor) 40 Mg Tablet 05/08/10 Amlodipine Besylate* (Norvasc*) 5 Mg Tablet 05/08/10 Medications Current Medications Amlodipine Besylate (Norvasc) 5 mg DAILY PO Last administered on 08/11/18at 08:14; Admin Dose 5 MG; Start 08/10/18 at 09:00 Atorvastatin Calcium (Lipitor) 40 mg DAILY PO Last administered on 08/11/18at 08:13; Admin Dose 40 MG; Start 08/10/18 at 09:00 IV Flush (NS 3 ml) 3 ml PER PROTOCOL IV ; Start 08/09/18 at 22:30 Ondansetron HCl (Zofran Inj) 4 mg Q6H PRN IV NAUSEA/VOMITING; Start 08/09/18 at 22:30 Acetaminophen (Tylenol Tab) 650 mg Q6H PRN PO .PAIN 1-3 OR TEMP Last administered on 08/10/18at 14:57; Admin Dose 650 MG; Start 08/09/18 at 22:30 Celecoxib (Celebrex) 200 mg BID PO Last administered on 08/11/18at 08:15; Admin Dose 200 MG; Start 08/09/18 at 22:30 Potassium Chloride 50 ml @ 50 mls/hr ONCE IVPB Last administered on 08/11/18at 00:17; Admin Dose 50 MLS/HR; Start 08/09/18 at 23:00; Stop 08/11/18 at 23:59 Famotidine (Pepcid) 20 mg HS PO Last administered on 08/10/18at 20:38; Admin Dose 20 MG; Start 08/10/18 at 21:00 Pantoprazole (Protonix Tab) 40 mg DAILY@06 PO Last administered on 08/11/18at 06:24; Admin Dose 40 MG; Start 08/10/18 at 09:00 Linagliptin (Tradjenta) 5 mg DAILY PO Last administered on 08/11/18at 09:38; Admin Dose 5 MG; Start 08/11/18 at 09:00 Miscellaneous Information 1 ea NOTE XX ; Start 08/11/18 at 08:30 Glucose (Glutose) 15 gm Q15M PRN PO DECREASED GLUCOSE; Start 08/11/18 at 08:30 Glucose (Glutose) 22.5 gm Q15M PRN PO DECREASED GLUCOSE; Start 08/11/18 at 08:30 Dextrose (D50w Syringe) 25 ml Q15M PRN IV DECREASED GLUCOSE; Start 08/11/18 at 08:30 Dextrose (D50w Syringe) 50 ml Q15M PRN IV DECREASED GLUCOSE; Start 08/11/18 at 08:30 Glucagon (Glucagen) 1 mg Q15M PRN IM DECREASED GLUCOSE; Start 08/11/18 at 08:30 Glucose (Glutose) 15 gm Q15M PRN BUCCAL DECREASED GLUCOSE; Start 08/11/18 at 08:30 Allergies: Coded Allergies: procaine (Verified Adverse Reaction, Severe, LEUKEMIA, 05/08/10) Past Surgical History reviewed Social History reviewed Smoking Status: Former smoker ROSI HERNANDEZ NP August 11, 2018 16:46 LIGIA CHIU August 12, 2018 06:28
--- NOTE | 2018-08-11 16:53 | CONS ---
DATE OF ADMISSION: 08/09/2018 DATE OF CONSULTATION: TYPE OF CONSULTATION: Rheumatology. HISTORY OF PRESENT ILLNESS: The patient is an 83-year-old man who is a relatively poor his lisa, but it seems that about a year ago he started having some progressive dysphasia as well as oc casional low-grade fevers and possibly some increased fatigue. About a month or so ago, he was treat ed with combination of Rocephin and Kenalog with rapid improvement in his symptoms. Around that time , he also had some vague headaches around the ears although unclear exactly what symptoms he had, but rapidly they improved. Subsequently, the dysphagia returned and for the last week or so, he has bee n having a new onset of headaches initially on the right temporal area possibly, but then spreading t o the occiput and left roman catholic and top of the scalp. Some neck ache. The patient denies new visual symptoms or jaw claudication symptoms. He denies a history of diffuse myalgias. RHEUMATOLOGIC REVIEW OF SYSTEMS: Also negative for history of rash, arthritis. Denies shortness of breath or chest pains. Denies abdominal pain, nausea, vomiting. He does continue with possible mild sore throat, some discomfort there and he has chronic hearing decreased. He does have some chronic fatigue. PAST MEDICAL HISTORY: Question of diabetes, hypertension, hyperlipidemia, history of prostatic cance r, history of sinusitis. MEDICATIONS: Include: 1. Atorvastatin. 2. Amlodipine. 3. Lyrica. 4. Claritin. ALLERGIES: NO KNOWN ALLERGIES TO MEDICATIONS. SOCIAL HISTORY: The patient is , retired, originally from [place] and he visited his friends a year ago. PHYSICAL EXAMINATION: VITAL SIGNS: Afebrile at present, blood pressure 127/66, pulse 77, respirations 20, oxygen saturatio n 92 on room air. GENERAL: Well-developed, well-nourished man, alert, appears oriented. SKIN: Without acute lesions. HEENT: Minimal if any scalp tenderness or temporal artery tenderness. No definite evidence of tempo ral artery prominence. NECK: Without lymphadenopathy or thyromegaly. Slight decreased range of motion. CHEST: Clear to auscultation. HEART: Regular rate and rhythm without definite gallops or murmurs noted. ABDOMEN: Soft without tenderness or masses. MUSCULOSKELETAL: He does have tender trigger points at the upper back; otherwise no specific tendern ess and all joints with good range of motion without synovitis. NEUROLOGIC: Grossly intact. Chart was reviewed. LABORATORY STUDIES: Noted, including sedimentation rate of 58. C-reactive protein elevated. Mild a nemia with hemoglobin of 11.2, hematocrit 34.9, white count 7000. Chemistries are normal except for a globulin somewhat elevated at 4.7. Hemoglobin A1c 7.1. MICROBIOLOGY: Urine with some red cells and negative cultures. DIAGNOSTIC DATA: CT of the sinuses and brain is negative. Chest x-ray is normal. CTA thorax and ch est is negative. MRI of the brain shows chronic mild microvascular changes. Echocardiogram is darlene l. Carotid Doppler is negative. ASSESSMENT: Elevated sedimentation rate and C-reactive protein of unclear etiology. No clear eviden ce of infection per infectious disease. The fact that the patient responded to the injections of Aiden ephin and Kenalog can imply that he actually responded rapidly to the steroids; therefore, possibly mayi ang has a vasculitic syndrome. He does have a history of sinus problems, although there is no evidence of sinus abnormalities at present apparently. We will however reevaluate for the possibility of gra nulomatosis with polyangiitis and microscopic polyangiitis. Also, we would consider the possibility of giant cell arteritis, although there is no definite obvious temporal artery prominence or even ten derness. RECOMMENDATIONS: We will obtain several laboratory studies and discuss further with the above specia lists. Thank you for having me see the patient rheumatologically. Dictated By: SHARMAINE PENG MD CW/NTS Conf#: [id number] DID#: [id number] CC: KARL RODRIGUES MD;*EndCC*
[2018-08-11] MEDS: FAMOTIDINE 20 MG TAB PO SCH (20:44)
[2018-08-12] VITALS: BP 148/69; PULSE 119; PULSE 66; PULSE 78; RESP 19
[2018-08-12 04:00] VITALS: PULSE 66
[2018-08-12 04:12] VITALS: BP 115/55; PULSE 63; RESP 19
[2018-08-12] MEDS: PANTOPRAZOLE (EC) 40 MG TAB PO SCH (05:35)
[2018-08-12 07:38] VITALS: BP 145/70; PULSE 77; RESP 18
--- NOTE | 2018-08-12 08:38 | PN ---
Date/Time of Note Date/Time of Note DATE: 08/12/18 TIME: 08:29 Assessment/Plan VTE Prophylaxis [place] [facility] [place]: 3 [place] applied [place] [facility] [place] SCD contraindicated: other (to be dc'd) Pharmacological prophylaxis: other (to be dc today) Pharm contraindication: low risk/ambulating Lines/Catheters IV Catheter Type (from [facility] Saline Lock Urinary Cath still in place: No Assessment/Plan Assessment/Plan 1. BLANCA has resolved, ? cause not clear, will cont celebrex 2. Hypoxemia has resolved 3. Diff swallowing has resolved 4. Gen fatigue has resolved 5. All the above may have been viral ?? 6. Will follow up as OP inflam markers Result Diagram: 08/11/18 0606 08/10/18 0849 Results 24hrs Laboratory Tests Test 08/11/18 14:40 Urine Color YELLOW Urine Clarity CLEAR Urine pH 8.0 Urine Specific [place] 1.009 Urine Ketones NEGATIVE Urine Nitrite NEGATIVE Urine Bilirubin NEGATIVE Urine Urobilinogen 2+ H Urine Leukocyte Esterase NEGATIVE Urine Microscopic RBC 7 H Urine Microscopic WBC 1 Urine Bacteria FEW A Urine Mucus FEW A Urine Hemoglobin 1+ H Urine Glucose NEGATIVE Urine Total Protein NEGATIVE Subjective 24 Hr Interval Summary Respiratory: No cough, No shortness of breath Cardiovascular: No chest pain, No orthopenea, No palpitations Gastrointestinal: no complaints Genitourinary: no complaints Musculoskeletal: no complaints Neurologic: No dizziness, No focal-weakness, No headache Exam/Review of Systems Exam Vitals Vital Signs Date Temp Pulse Resp B/P (MAP) Pulse Ox O2 O2 Flow FiO2 Time Delivery Rate 08/12/18 97.4 77 18 145/70 95 Room Air 07:38 (95) 08/11/18 3.0 18:17 Intake and Output 08/11/18 08/11/18 08/12/18 1515:00 23:00 07:00 IntakeIntake Total 960 ml 400 ml BalanceBalance 960 ml 400 ml Neck: No jvd Cardiovascular: regular rate and rhythm Gastrointestinal: soft Extremities: No edema Results Results 24hrs Laboratory Tests Test 08/11/18 14:40 Urine Color YELLOW Urine Clarity CLEAR Urine pH 8.0 Urine Specific [place] 1.009 Urine Ketones NEGATIVE Urine Nitrite NEGATIVE Urine Bilirubin NEGATIVE Urine Urobilinogen 2+ H Urine Leukocyte Esterase NEGATIVE Urine Microscopic RBC 7 H Urine Microscopic WBC 1 Urine Bacteria FEW A Urine Mucus FEW A Urine Hemoglobin 1+ H Urine Glucose NEGATIVE Urine Total Protein NEGATIVE Medications Medication Current Medications Amlodipine Besylate (Norvasc) 5 mg DAILY PO Last administered on 08/11/18at 08:14; Admin Dose 5 MG; Start 08/10/18 at 09:00 Atorvastatin Calcium (Lipitor) 40 mg DAILY PO Last administered on 08/11/18at 08:13; Admin Dose 40 MG; Start 08/10/18 at 09:00 IV Flush (NS 3 ml) 3 ml PER PROTOCOL IV ; Start 08/09/18 at 22:30 Ondansetron HCl (Zofran Inj) 4 mg Q6H PRN IV NAUSEA/VOMITING; Start 08/09/18 at 22:30 Acetaminophen (Tylenol Tab) 650 mg Q6H PRN PO .PAIN 1-3 OR TEMP Last administered on 08/10/18at 14:57; Admin Dose 650 MG; Start 08/09/18 at 22:30 Celecoxib (Celebrex) 200 mg BID PO Last administered on 08/11/18at 20:44; Admin Dose 200 MG; Start 08/09/18 at 22:30 Famotidine (Pepcid) 20 mg HS PO Last administered on 08/11/18at 20:44; Admin Dose 20 MG; Start 08/10/18 at 21:00 Pantoprazole (Protonix Tab) 40 mg DAILY@06 PO Last administered on 08/12/18at 05:35; Admin Dose 40 MG; Start 08/10/18 at 09:00 Linagliptin (Tradjenta) 5 mg DAILY PO Last administered on 08/11/18at 09:38; Admin Dose 5 MG; Start 08/11/18 at 09:00 Miscellaneous Information 1 ea NOTE XX ; Start 08/11/18 at 08:30 Glucose (Glutose) 15 gm Q15M PRN PO DECREASED GLUCOSE; Start 08/11/18 at 08:30 Glucose (Glutose) 22.5 gm Q15M PRN PO DECREASED GLUCOSE; Start 08/11/18 at 08:30 Dextrose (D50w Syringe) 25 ml Q15M PRN IV DECREASED GLUCOSE; Start 08/11/18 at 08:30 Dextrose (D50w Syringe) 50 ml Q15M PRN IV DECREASED GLUCOSE; Start 08/11/18 at 08:30 Glucagon (Glucagen) 1 mg Q15M PRN IM DECREASED GLUCOSE; Start 08/11/18 at 08:30 Glucose (Glutose) 15 gm Q15M PRN BUCCAL DECREASED GLUCOSE; Start 08/11/18 at 08:30 KARL RODRIGUES MD August 12, 2018 08:38
[2018-08-12] MEDS ORDERED: LINA5TAB PO (08:47)
[2018-08-12] MEDS ORDERED: CELE-54 PO (08:47)
[2018-08-12] MEDS: CELECOXIB 200 MG CAP PO SCH (09:17)
[2018-08-12] MEDS: LINAGLIPTIN 5 MG TABLET PO SCH (09:17)
[2018-08-12] MEDS: ATORVASTATIN 40 MG TAB PO SCH (09:17)
[2018-08-12] MEDS: AMLODIPINE 5 MG TAB PO SCH (09:18)
[2018-08-12 09:19] VITALS: PULSE 77
--- NOTE | 2018-08-12 11:48 | CONS ---
Assessment/Plan Assessment/Plan Hospital Course 83 yo M with multiple comorbidities who presents for evaluation of headache, neck stiffness, and other sx... for which neurology is consulted. The pt is currently unable to characterize the details of his headache... The clinical picture is could be consistent with a secondary headache, in the context of systemic illness. Meningoencephalitis is unlikely. Temporal arteritis is unlikely. MRI brain is without acute intracranial pathology. P: Ok to defer additional neuroimaging for now Agree with celebrex (with protonix) for headache management Cont medical management per primary PT/OT/ST as necessary Will follow clinically, to recommend neurologic studies, as necessary Consultation Date/Type/Reason Admit Date/Time August 09, 2018 at 20:57 Type of Consult Neurology Reason for Consultation headache Requesting Provider: KARL RODRIGUES MD Date/Time of Note DATE: 08/12/18 TIME: 11:48 24 HR Interval Summary Free Text/Dictation Continues acute care. No complaints of headache today. Exam Vital Signs Vitals Vital Signs Date Temp Pulse Resp B/P (MAP) Pulse Ox O2 O2 Flow FiO2 Time Delivery Rate 08/12/18 77 09:19 08/12/18 97.4 18 145/70 95 Room Air 07:38 (95) 08/11/18 3.0 18:17 Intake and Output 08/11/18 08/11/18 08/12/18 1515:00 23:00 07:00 IntakeIntake Total 960 ml 400 ml BalanceBalance 960 ml 400 ml Exam PE: Gen Appearance: No Apparent Distress HEENT: Normocephalic Cardiovascular: Regular rate Lungs: Clear bilaterally Abdomen: Soft Extremities: Dry NE: The patient was alert and oriented. Language was normal. Fund of knowledge was normal. Pupils were equal and reactive to light. There was no afferent pupillary defect. Visual reza were normal. Funduscopic examination was limited. Extra-ocular movements were full. Ptosis was absent. There was no nystagmus. Facial sensation was normal. Face was symmetric with normal strength. Hearing was intact. Palate movements were normal. Neck strength was normal. There was normal tongue bulk and speed of movement. Tone was normal. Muscle bulk was normal. I did not see fasciculations. Arms and legs were strong to confrontation. Vibration sensation was normal. Temperature and pinprick sensation was normal. Rapid alternating movements were normal. There was no dysmetria. There was no intention tremor. Gait was deferred due to bedrest. Arm and leg reflexes were 2+ and symmetric. Nair's sign was absent. Plantar responses were flexor. ROSI HERNANDEZ NP August 12, 2018 11:48
--- NOTE | 2018-08-16 13:12 | DS ---
DATE OF ADMISSION: 08/09/2018 DATE OF DISCHARGE: 08/12/2018 HISTORY OF PRESENT ILLNESS: This 83-year-old male admitted to the hospital with headache, sore throa t, low grade fever and difficulty swallowing. PHYSICAL EXAMINATION: VITAL SIGNS: BP 123/70, pulse 72, respirations were 18. He was afebrile. CARDIOPULMONARY: Exam was normal. ENT: Exam was normal. NEUROLOGIC: Exam was normal. LABORATORY AND DIAGNOSTIC STUDIES: Hematocrit 38.8 on 08/09/2018, 34.9 on 08/11/2018, white count wa s normal, platelet count was normal. Sed rate was 58. Blood gas on room air: pO2 of 61.6, pCO2 of 33.9, pH 7.454, O2 sat was 91.9%. Protime and PTT were normal. Urinalysis was obtained on and 08/11/2018. He had red cells present between 7 and 17, hemoglobin was present. Protein creati nine ratio was 0.39. Few bacteria were present on 08/11/2018. 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 Chemistries: Sodium 141, potassium 3.4, chloride 104, CO2 of 29, BUN 19, creatinine 0.94. Liver tests were normal except alkaline phosphatas e was 131, globulins were 4.7, albumin 3.7. Other laboratory studies ordered that are pending includ e ANCA and CHANO. Procalcitonin was 0.09. C-reactive protein 6.4 (elevated). Hemoglobin A1c was 7.1. 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 Chest x-ray: Small fluid collection in minor fissure, poor inspira tory effort. Brain CT: was unremarkable. There is periventricular low density area suggestiv e of deep white matter ischemic changes; otherwise unrevealing. CTA revealed no evidence of pulmonar y emboli, 6 mm nodule in the left upper lobe. Repeat CT was suggested in 6 to 12 months. Brain MRI: Nonspecific small scattered areas of T2 and flair signal hyperintensity compatible with chronic mil d microvascular ischemic changes. Renal ultrasound was unrevealing as well as bladder ultrasound wit h postvoid residual volume of 36 mL. Carotid study was unrevealing. Brain MRA revealed mild narrowi ng of the cavernous and supraclinoid internal carotid artery segments; otherwise no abnormalities wer e noted. HOSPITAL COURSE: It was unclear as to his presenting symptoms with respect to difficulty swallowing and sore throat. He was seen by Dr. Taisha Cheney who discerned he had no significant sinus or retroph aryngeal pathology and antecedent MRI of the soft tissues of the neck did reveal findings compatible with longus colli tendinitis. Given the latter, I did begin a course of Celebrex 200 mg b.i.d. empir ically with H2 darryl. With this endeavor, his headaches eventually improved and he was able to swa llow without difficulty. He was seen in neurology consultation and it was unclear to them why his he adaches were so prominent, but it had resolved and was thought no other intervention needed. He was evaluated by infectious disease, Dr. Benton Burgess, who felt no infectious process was present. Given his slight elevation A1c, he underwent diabetic counseling and was started on Tradjenta. At the time of discharge, headaches resolved. He was able to swallow and as noted mild hypoxemia had resolved. He was seen in rheumatology consultation given elevated sed rate and CRP. Temporal arteritis was thoug ht perhaps a cause. It was felt that observation needed before beginning any steroids and would perh aps consider a temporal artery biopsy pending course. His microscopic hematuria was noted. DISCHARGE DIAGNOSES: 1. Presenting severe headache, difficulty swallowing and low-grade fever, resolved. 2. History of diabetes with elevated A1c. Tradjenta was instituted. 3. Hypertension, well controlled. We will continue same meds. 4. Positive monoclonal protein. We will have him see hematology in followup. 5. Microscopic hematuria. We will need to have urology reevaluated him. PLAN: To be discharged, to see me in 1 week. MEDICATIONS: Include: 1. Celebrex 200 mg b.i.d. for 10 days. 2. Tradjenta 5 mg daily. 3. Amlodipine 5 mg per day. 4. Atorvastatin 40 mg per day. DIET: Diabetic diet. Dictated By: KARL CENTENO/CORNELIA Conf#: [id number] DID#: [id number]
== END 2018-08-12 12:00 | disposition home health service (06) | DRG 558 ==
LOC: E/R 17:09 → TEL 20:57
PROVIDERS: ADMIT Internal Medicine; ATTEND Internal Medicine
DX: M77.8 Other enthesopathies, not elsewhere classified (principal); I10 Essential (primary) hypertension; M31.6 Other giant cell arteritis; E11.8 Type 2 diabetes mellitus with unspecified complications; R51 Headache; R31.9 Hematuria, unspecified; E78.5 Hyperlipidemia, unspecified; R91.1 Solitary pulmonary nodule; Z85.46 Personal history of malignant neoplasm of prostate
CPT/HCPCS: 36415; 36600; 70450; 70486; 70546; 70551; 71045; 71275; 76775; 80048; 80053; 81001; 81003; 82570; 82803; 83036; 83605; 83735; 84100; 84145; 84484; 85025; 85610; 85651; 85730; 86140; 86325; 87086; 87880; 92526; 92610; 93005; 93306; 93880; 96374; 96375; 97161; J2270; J2405; J3480; J7030; Q9967